=== PATIENT | male | born 1940 | race Caucasian/White ===

== ENCOUNTER 2020-07-24 11:50 | Day surgery (SDC) | payer OTHER ==
[~2020-07-24] VITALS: Ht 165.1 cm; Wt 82.3 kg
[2020-07-24] MEDS ORDERED: [UNRECOGNIZED DRUG - OTHER] (12:45)
[2020-07-24] MEDS ORDERED: ASPI-963 PO (12:45)
[2020-07-24] MEDS ORDERED: MAGN400T36 PO (12:45)
[2020-07-24] MEDS ORDERED: [UNRECOGNIZED DRUG - OTHER] (12:45)
[2020-07-24] MEDS ORDERED: ATOR20TA86 PO (12:45)
[2020-07-24] MEDS ORDERED: LOSA25TA25 PO (12:45)
[2020-07-24 12:51] VITALS: BP 117/83
[2020-07-24] MEDS ORDERED: CHLORHEXIDINE 15 ML UDC MM ONE (13:00)
[2020-07-24] MEDS ORDERED: LACTATED RINGERS 1,000 ML IV SCH (13:00)
[2020-07-24] MEDS ORDERED: FENTANYL PF 100 MCG/2ML ONE (13:26)
[2020-07-24] MEDS ORDERED: PROPOFOL 10 MG/ML, 50ML ONE (14:15)
[2020-07-24] MEDS ORDERED: PHENYLEPHRINE 10 MG/ML ONE (14:15)
[2020-07-24] MEDS ORDERED: INDOMETHACIN 50 MG SUPP.RECT ONE (15:21)
[2020-07-24] MEDS ORDERED: HALOPERIDOL 5 MG/ML IV PRN (15:30)
[2020-07-24] MEDS ORDERED: HYDROmorphone 1 MG/ML, 1ML INJ IVPush PRN (15:30)
[2020-07-24] MEDS ORDERED: PROMETHAZINE 12.5 MG SUPP PR PRN (15:30)
[2020-07-24] MEDS ORDERED: FENTANYL PF 100 MCG/2ML IV PRN (15:30)
[2020-07-24] MEDS ORDERED: ACETAMINOPHEN 325 MG TABLET PO PRN (15:30)
[2020-07-24] MEDS ORDERED: METOPROLOL 1 MG/ML, 5ML IV PRN (15:30)
[2020-07-24] MEDS ORDERED: ONDANSETRON 2MG/ML, 2ML IVPush PRN (15:30)
[2020-07-24] MEDS ORDERED: OXYcodone 5 MG/5 ML ORAL.SOL UDC PO PRN (15:30)
[2020-07-24] MEDS ORDERED: hydrALAzine 20 MG/ML, 1ML IV PRN (15:30)
[2020-07-24] MEDS ORDERED: EPHEDRINE 50 MG/ML, 1ML IVPush PRN (15:30)
[2020-07-24] MEDS ORDERED: DIPHENHYDRAMINE 50 MG/ML, 1ML IVPush PRN (15:30)
[2020-07-24] MEDS ORDERED: LABETALOL 5MG/ML, 20ML IV PRN (15:30)
[2020-07-24] MEDS ORDERED: METOCLOPRAMIDE 5 MG/ML, 2ML IVPush PRN (15:30)
[2020-07-24] MEDS ORDERED: OMNIPAQUE 350 MG/ML, 50 ML BOTTLE ONE (15:37)
== END 2020-07-24 17:12 | disposition home or self-care (01) ==
LOC: OUT 11:50
PROVIDERS: ATTEND Internal Medicine Geriatric Medicine
DX: K80.50 Calculus of bile duct without cholangitis or cholecystitis without obstruction (principal); I10 Essential (primary) hypertension; E78.5 Hyperlipidemia, unspecified; I25.10 Atherosclerotic heart disease of native coronary artery without angina pectoris; I25.2 Old myocardial infarction; Z20.822 Contact with and (suspected) exposure to COVID-19; Z79.899 Other long term (current) drug therapy; Z95.5 Presence of coronary angioplasty implant and graft
CPT/HCPCS: 43262; 43264; 74328; 87635; 93005; C1769; J2370; J2704; J3010; J7120; Q9967